=== PATIENT | male | born 1970 | race African-American/Black ===

== ENCOUNTER 2018-06-24 07:56 | Inpatient (IN) | payer SELFPAY ==
[2018-06-24] VITALS (16 sets, daily range): BP systolic 124–181; BP diastolic 73–102
[~2018-06-24] VITALS: Ht 170.2 cm; Wt 97.2 kg
[~2018-06-24 07:56] MED LIST: (None)3.5 GM OP; CIPROFLOXACN500 MG PO; GENTAMICIN SULF5 ML OP; METRONIDAZOL500 MG PO; NO MEDS; ULTRAM50 M1 PO
[2018-06-24] MEDS ORDERED: EXFORGE1 TA1 PO (08:14)
[2018-06-24] MEDS ORDERED: ASPIRIN81 MG PO (08:14)
[2018-06-24 08:33] LABS: HEMATOCRIT 45.1 % (39.0-50.0); HEMOGLOBIN 15.4 g/dl (14.0-18.0); IMMATURE GRANULOCYTES 0.2 % (0.0-5.0); MEAN CELL VOLUME 95.3 fL CALC (80.0-100.0); MEAN CORPUSCULAR HGB 32.6 pG CALC (26.0-32.0); MEAN CORPUSCULAR HGB CONC 34.1 g/L CALC (32.0-36.0); NEUT# 4.66 thou/uL (1.82-7.42); RED BLOOD COUNT 4.73 mill/uL (4.70-6.10); RED CELL DISTRI WIDTH 13.3 % (11.5-15.5)
[2018-06-24 08:48] LABS: ALBUMIN 4.6 g/dL (3.2-5.0); ALKALINE PHOSPHATASE 95 u/l (38-126); ANION GAP 15 (6-22 (CALC)); BILIRUBIN, TOTAL 0.5 mg/dL (0.0-1.4); BUN 12 mg/dL (9-20); BUN/CREATININE RATIO 10 (12-20 (CALC)); CARBON DIOXIDE 27 mmol/l (22-30); CHLORIDE 105 mmol/l (95-108); CREATININE 1.2 mg/dL (0.7-1.3); GFR > 60 ML/MIN (>=60 (CALC)); GFR FOR AFR.AMER. > 60 ML/MIN (>=60 (CALC)); POTASSIUM 4.1 mmol/l (3.5-5.1); SGOT/AST 45 u/l (17-59); SGPT/ALT 44 u/l (21-72); SODIUM 143 mmol/l (137-146); TOTAL PROTEIN 8.3 g/dL (6.3-8.2)
[2018-06-24 09:00] LABS: MYOGLOBIN 41 ng/mL (0 - 121)
[2018-06-24 10:44] LABS: URINE BILIRUBIN - DIPSTICK NEGATIVE (NEGATIVE); URINE BLOOD DIPSTICK TRACE-LYSED (NEGATIVE); URINE COLOR YELLOW; URINE GLUCOSE - DIPSTICK NEGATIVE (NEGATIVE); URINE KETONE NEGATIVE (NEGATIVE); URINE LEUK ESTERASE NEGATIVE (NEGATIVE); URINE NITRITE - DIPSTICK NEGATIVE (Negative); URINE PH 6.5 (4.5-8.0); URINE PROTEIN - DIPSTICK NEGATIVE (NEG-TRACE); URINE UROBILINOGEN - DIPSTICK 0.2 E.U./dL (0.2)
[2018-06-24 10:46] LABS: URINE CLARITY CLEAR
[2018-06-24 10:52] LABS: BARBITURATES NEGATIVE (NEGATIVE); COCAINE NEGATIVE (NEGATIVE); METHADONE NEGATIVE (NEGATIVE); OXCYCODONE NEGATIVE (NEGATIVE); TETRAHYDROCANNABIONOL NEGATIVE (NEGATIVE); TRICYLIC ANTIDEPRESSANTS NEGATIVE (NEGATIVE)
[2018-06-25] VITALS (9 sets, daily range): BP systolic 119–155; BP diastolic 67–98
[2018-06-25 06:07] LABS: HEMATOCRIT 42.6 % (39.0-50.0); HEMOGLOBIN 14.6 g/dl (14.0-18.0); MEAN CELL VOLUME 95.3 fL CALC (80.0-100.0); MEAN CORPUSCULAR HGB 32.7 pG CALC (26.0-32.0); MEAN CORPUSCULAR HGB CONC 34.3 g/L CALC (32.0-36.0); RED BLOOD COUNT 4.47 mill/uL (4.70-6.10); RED CELL DISTRI WIDTH 13.4 % (11.5-15.5)
[2018-06-25 06:21] LABS: ANION GAP 13 (6-22 (CALC)); BUN 12 mg/dL (9-20); BUN/CREATININE RATIO 11 (12-20 (CALC)); CALCULATED LDLCHOLESTEROL 134 mg/dL (62-129 (CALC)); CARBON DIOXIDE 25 mmol/l (22-30); CHLORIDE 106 mmol/l (95-108); CHOLESTEROL HDL RATIO 3.6 (<4.4 (CALC)); CREATININE 1.1 mg/dL (0.7-1.3); GFR > 60 ML/MIN (>=60 (CALC)); GFR FOR AFR.AMER. > 60 ML/MIN (>=60 (CALC)); HDL CHOLESTEROL 59 mg/dL (>=40); POTASSIUM 4.2 mmol/l (3.5-5.1); SODIUM 140 mmol/l (137-146); TOTAL CHOLESTEROL 213 mg/dl (0-199); TOTAL TRIGLYCERIDES 100 mg/dl (30-149); VLDL CHOLESTROL 20 mg/dl (5-56 (CALC))
[2018-06-25] MEDS ORDERED: HYDROCHLOROT25 MG PO (11:44)
[2018-06-25] MEDS ORDERED: AMLODIPINE BESYL5 MG PO (11:45)
[2018-06-25] MEDS ORDERED: LOSARTAN POT50 MG PO (11:45)
== END 2018-06-25 12:10 | disposition home or self-care (01) | DRG 305 ==
LOC: ED 07:56 → ED-I 10:00 → ED 10:29 → ICU 10:30
PROVIDERS: Emergency Medicine; ADMIT Internal Medicine; ATTEND Internal Medicine
DX: I16.0 Hypertensive urgency (principal); I10 Essential (primary) hypertension; E11.9 Type 2 diabetes mellitus without complications; F17.210 Nicotine dependence, cigarettes, uncomplicated; F10.10 Alcohol abuse, uncomplicated; Z91.14 Patient's other noncompliance with medication regimen
CPT/HCPCS: J1650

== ENCOUNTER 2018-08-07 01:53 | Inpatient (IN) | payer OTHER ==
[2018-08-07] VITALS (32 sets, daily range): BP systolic 100–180; BP diastolic 50–103
[~2018-08-07] VITALS: Ht 170.2 cm; Wt 97.4 kg
[~2018-08-07 01:53] MED LIST changes: +AMLODIPINE BESYL5 MG PO; +ASPIRIN81 MG PO; +EXFORGE1 TA1 PO; +HYDROCHLOROT25 MG PO; +LIPITOR10 M1 PO; +LOPRESSOR25 MG PO; +LOSARTAN POT50 MG PO; +METFORMIN500 M1 PO; +NITROSTAT0.3 MG SL; +PRILOSEC20 MG/CAP PO
--- NOTE | 2018-08-07 01:56 | NUR ---
PT STRAIGHT BACK TO ROOM 12 AND EKG OBTAINED. P
--- NOTE | 2018-08-07 02:00 | NUR ---
PT HAD EKG CHANGES RIGHT SIDE EKG DONE. DR JAY REVIEWING. PULLED PREVIOUS- FROM 08/03- CHANGES NOTED.
[2018-08-07 02:36] LABS: HEMATOCRIT 40.8 % (39.0-50.0); HEMOGLOBIN 13.9 g/dl (14.0-18.0); IMMATURE GRANULOCYTES 0.1 % (0.0-5.0); MEAN CELL VOLUME 94.2 fL CALC (80.0-100.0); MEAN CORPUSCULAR HGB 32.1 pG CALC (26.0-32.0); MEAN CORPUSCULAR HGB CONC 34.1 g/L CALC (32.0-36.0); NEUT# 5.06 thou/uL (1.82-7.42); RED BLOOD COUNT 4.33 mill/uL (4.70-6.10); RED CELL DISTRI WIDTH 12.8 % (11.5-15.5)
[2018-08-07 02:49] LABS: URINE BILIRUBIN - DIPSTICK NEGATIVE (NEGATIVE); URINE BLOOD DIPSTICK TRACE-INTACT (NEGATIVE); URINE COLOR YELLOW; URINE GLUCOSE - DIPSTICK NEGATIVE (NEGATIVE); URINE KETONE NEGATIVE (NEGATIVE); URINE LEUK ESTERASE NEGATIVE (NEGATIVE); URINE NITRITE - DIPSTICK NEGATIVE (Negative); URINE PROTEIN - DIPSTICK NEGATIVE (NEG-TRACE); URINE UROBILINOGEN - DIPSTICK 0.2 E.U./dL (0.2)
--- NOTE | 2018-08-07 02:51 | NUR ---
PAIN DOWN TO 3/10- EX AT BEDSIDE. MEDICATIONS GIVEN. WAITING ON RESULTS.
[2018-08-07 02:52] LABS: URINE CLARITY CLEAR
[2018-08-07 02:53] LABS: ALBUMIN 4.4 g/dL (3.2-5.0); ALKALINE PHOSPHATASE 94 u/l (38-126); ANION GAP 15 (6-22 (CALC)); BILIRUBIN, TOTAL 0.3 mg/dL (0.0-1.4); BUN 20 mg/dL (9-20); BUN/CREATININE RATIO 17 (12-20 (CALC)); CARBON DIOXIDE 31 mmol/l (22-30); CHLORIDE 102 mmol/l (95-108); CREATININE 1.2 mg/dL (0.7-1.3); GFR > 60 ML/MIN (>=60 (CALC)); GFR FOR AFR.AMER. > 60 ML/MIN (>=60 (CALC)); SGOT/AST 26 u/l (17-59); SGPT/ALT 40 u/l (21-72); SODIUM 144 mmol/l (137-146); TOTAL PROTEIN 7.5 g/dL (6.3-8.2)
[2018-08-07 02:54] LABS: ACT PARTIAL THROMBO TIME 23.3 SECONDS (20.0-32.5); INTERNATIONAL NORMALIZED RATIO 0.9 RATIO (0.7-1.3)
[2018-08-07 03:05] LABS: MYOGLOBIN 30 ng/mL (0 - 121)
--- NOTE | 2018-08-07 03:56 | NUR ---
REPORT GIVEN TO MADAY STEPHEN
--- NOTE | 2018-08-07 04:05 | NUR ---
Admission Note Report Given to: MADAY STEPHEN Transported by: X Wheelchair Stretcher Transported with: X Nurse Transporter X Patent IV O2 X Employment Programs Analyst
--- NOTE | 2018-08-07 04:10 | NUR ---
REPORT GIVEN BY DAVION NASSAR. PATIENT TRANSFERED TO UNIT VIA WHEELCHAIR WITH FAMILY PRESENT. RESP EVEN AND UNLABORED. NO S/S OF DISTRESS NOTED. PATIENT ORIENTED TO ROOM, BED, AND CALL LIGHT. FALL PRECAUTIONS IN PLACE, PLAN OF CARE DISCUSSED, AND PATIENT INFORMED TO CALL WITH ANY QUESTIONS OR CONCERNS. IV SITE APPEARS TO BE HEALTHY, NO REDNESS OR SWELLING. TELE MONTIOR IN PLACE.
--- NOTE | 2018-08-07 06:55 | NUR ---
RECEIVED REPORT FROM ZAFAR NASSAR. HEAD SETTER MURPHY NASSAR ON FLOOR. STAT EKG OBTAINED SHOWING SIGNIFICANT CHANGES. LAB CALLED TO OBTAINED 2ND TROPONIN NOW. PT STILL C/O CP AT REST 11/18. CALLED BY HEAD SETTER AND ORDERS OBTAINED TO TRANSFER TO ICU BED 4 AND TO START A NITRO GTT. PT NOTIFIED, BELCHINAS PACKED UP AND PT SENT IN BED. TRANSFERRED PT TO ICU WITH ROSARIO NASSAR.
--- NOTE | 2018-08-07 07:15 | NUR ---
male pt received from Med Surg via bed accompanied by A Escobar MALAGON, Shaekel Roberts RN and Kristy Kline, Sup; bedside report received; assessment completed at this time; pt alert and oriented; confused to month but able to state year; admits to midsternal chest pressure rating 4/10; denies pain radiating; admits to nausea; no vomiting noted at present; pt admits to diaphoresis during the night; no diaphoresis noted at present; resp even and unlabored; lungs clear bilat; o2 per nc applied; skin color wnl; hr reg; strong pulses; no edema noted; sr on monitor; abd soft with bs present; no bm noted per publications writer; pt admits to voiding without pain or burning; no urine to inspect at thist time; #20 flushed and patent to lac; no redness or edema noted at site; significant left sided weakness noted; pt admits to weakness since 06/2018; pt states primary MD (Dr Ahn) wants to get heart straight before worrying about the weakness and eyes; plan of care explained; staff remains at bedside; call light within reach; will continue to monitor
--- NOTE | 2018-08-07 07:15 | NUR ---
PT TAKEN TO ICU BED 4, PLACED ON MONITOR AND REPORT GIVEN TO FILIBERTO NASSAR.
--- NOTE | 2018-08-07 07:25 | NUR ---
ntg gtt initiated at 10mcg/min; pt admits to midternal chest pressure rating 5/10; very anxious and restless; moaning as if in worse pain; staff remains at bedside; ntg gtt to be titrated; will continue to monitor
--- NOTE | 2018-08-07 08:02 | NUR ---
awake in bed; pain controlled; s/o at bedside; no distress noted; o2 per nc; iv patent; ntg gtt infusing at 40mcg/min; no redness or edema noted at site; sr on monitor with occasional pvc; call light within reach; will continue to monitor
--- NOTE | 2018-08-07 08:48 | NUR ---
Dr Gibbons and Enrique Ruelas HEBREW CANTOR present at bedside to assess pt and discuss plan of care
--- NOTE | 2018-08-07 08:54 | NUR ---
[facility] transfer center called; spoke with [facility]; information provided; facesheet to be fax; awaiting bed assignment; will continue to monitor
[2018-08-07 08:57] LABS: BARBITURATES NEGATIVE (NEGATIVE); COCAINE NEGATIVE (NEGATIVE); METHADONE NEGATIVE (NEGATIVE); OXCYCODONE NEGATIVE (NEGATIVE); TETRAHYDROCANNABIONOL NEGATIVE (NEGATIVE); TRICYLIC ANTIDEPRESSANTS NEGATIVE (NEGATIVE)
--- NOTE | 2018-08-07 10:10 | NUR ---
0955- pt transferred to CT Scan via wc with ntg gtt infusing as per protocol in stable condition; pt denies chest pain at current; medical writer remains with pt; 1010- returned to unit via wc in stable condition accompanied by this medical writer and student nurses x2; ntg gtt at 20 mcg/min; pt denies chest pain; spouse at bedside; monitoring attachments reapplied; po fluids provided as per request; sr on monitor; will continue to monitor
--- NOTE | 2018-08-07 11:20 | NUR ---
pt awake in bed; offers no complaints; denies chest pain; spouse present at bedside; iv patent; fluids/ntg gtt infusing at 20mcg/min; no redness or edema noted at site; sb on monitor; accucheck 116; call light within reach; will continue to monitor
--- NOTE | 2018-08-07 12:05 | NUR ---
awake; offers no complaints; no distress noted; denies pain; spouse present at bedside; sr on monitor; o2 per nc; ntg gtt at 20mcg/min; no redness or edema noted at site; call light within reach; will continue to monitor
--- NOTE | 2018-08-07 13:13 | NUR ---
call placed to [facility] transfer center [facility]; no beds available at this time; will continue to monitor
--- NOTE | 2018-08-07 14:03 | NUR ---
resting in bed with eyes closed; no distress noted; iv patent; ntgg gtt at 20mcg/min; no redness or edema noted at site; sb on monitor; o2 per nc; s/o at bedside; will continue to monitor
--- NOTE | 2018-08-07 16:06 | NUR ---
awake in bed; offers no complaints; denies pain; iv patent; ntg gtt infusing at 20mcg/min; s/o at bedside; sb on monitor; o2 per nc; deny needs; call light within reach; will continue to monitor
--- NOTE | 2018-08-07 16:16 | NUR ---
call received from [facility] transfer center [facility]; bed assignment received [id number]; report to be called to [phone]
--- NOTE | 2018-08-07 16:37 | NUR ---
[facility] transfer Jason called per this sign writer hand; information provided; ETA 20 min
--- NOTE | 2018-08-07 16:53 | NUR ---
report called to TICO Gates RN; direct number provided to this development writer for additional questions; will continue to monitor
--- NOTE | 2018-08-07 17:26 | NUR ---
[facility] transport on unit; report given; will continue to monitor
--- NOTE | 2018-08-07 17:31 | NUR ---
pt discharged with [facility] transport in stable condition; belongings sent with pt;
== END 2018-08-07 17:31 | disposition short-term general hospital (02) | DRG 281 ==
LOC: ED 01:53 → ED-I 03:00 → ED 03:44 → MS2 03:45 → ICU 07:00
PROVIDERS: Family Medicine; Nurse Practitioner Family; ADMIT Internal Medicine; ATTEND Internal Medicine
DX: I21.4 Non-ST elevation (NSTEMI) myocardial infarction (principal); G81.94 Hemiplegia, unspecified affecting left nondominant side; I10 Essential (primary) hypertension; E11.9 Type 2 diabetes mellitus without complications; E78.5 Hyperlipidemia, unspecified; F17.210 Nicotine dependence, cigarettes, uncomplicated; Z79.84 Long term (current) use of oral hypoglycemic drugs
CPT/HCPCS: J1650

== ENCOUNTER 2022-05-08 21:55 | Observation (INO) | payer OTHER ==
[2022-05-08] VITALS (9 sets, daily range): BP systolic 126–174; BP diastolic 80–117
[~2022-05-08] VITALS: Ht 170.2 cm; Wt 102.0 kg
--- NOTE | 2022-05-08 22:05 | NUR ---
PT IN ROOM WITH FAMILY AT BEDSIDE, PT AMBULATED FROM WAITING ROOM WITH A STEADY GATE.
[2022-05-08 22:28] LABS: HEMOGLOBIN 15.7 g/dl (14.0-18.0); IMMATURE GRANULOCYTES 0.1 % (0.0-5.0); MEAN CORPUSCULAR HGB 31.8 pG CALC (26.0-32.0); MEAN CORPUSCULAR HGB CONC 33.1 g/dL CAL (32.0-36.0); NEUT# 7.09 thou/uL (1.82-7.42); RED BLOOD COUNT 4.94 mill/uL (4.70-6.10); RED CELL DISTRI WIDTH 14.3 % (11.5-15.5)
[2022-05-08 22:35] LABS: HEMATOCRIT 47.4 % (39.0-50.0)
--- NOTE | 2022-05-08 22:40 | NUR ---
PT IN ROOM ON MONITOR, AWAITING TEST RESULTS, PT MEDICATED FOR PAIN, NO NEEDS AT THIS TIME, WILL CONT TO MONITOR.
[2022-05-08 22:42] LABS: ALBUMIN 4.4 g/dL (3.2-5.0); ALKALINE PHOSPHATASE 96 u/l (38-126); AMYLASE 115 u/l (30-110); BUN 12 mg/dL (9-20); BUN/CREATININE RATIO 12 (12-20 (CALC)); CARBON DIOXIDE 25 mmol/l (22-30); CHLORIDE 105 mmol/l (95-108); GFR FOR AFR.AMER. > 60 ML/MIN (>=60 (CALC)); GFR OTHER RACES > 60 ML/MIN (>=60 (CALC)); LIPASE 163 u/l (23-300); POTASSIUM 4.3 mmol/l (3.5-5.1); SGOT/AST 28 u/l (17-59); TOTAL PROTEIN 8.2 g/dL (6.3-8.2)
[2022-05-08 22:43] LABS: ANION GAP 9 (6-22 (CALC)); BILIRUBIN, TOTAL 0.6 mg/dL (0.0-1.4); SODIUM 135 mmol/l (137-146)
[2022-05-08 22:46] LABS: D-DIMER 0.23 mg/L (0.19-0.60)
[2022-05-08 22:51] LABS: ACT PARTIAL THROMBO TIME 25.6 SECONDS (20.0-32.5); INTERNATIONAL NORMALIZED RATIO 0.9 RATIO (0.7-1.3); PROTHROMBIN TIME 9.3 SECONDS (9.0-12.5)
[2022-05-08 22:53] LABS: MYOGLOBIN 38 ng/mL (0 - 121)
[2022-05-08 22:56] LABS: URINE BILIRUBIN - DIPSTICK NEGATIVE (NEGATIVE); URINE BLOOD DIPSTICK NEGATIVE (NEGATIVE); URINE COLOR YELLOW; URINE GLUCOSE - DIPSTICK NEGATIVE (NEGATIVE); URINE KETONE NEGATIVE (NEGATIVE); URINE LEUK ESTERASE NEGATIVE (NEGATIVE); URINE PROTEIN - DIPSTICK NEGATIVE (NEG-TRACE); URINE SPECIFIC GRAVITY 1.025
[2022-05-08 22:57] LABS: URINE NITRITE - DIPSTICK NEGATIVE (Negative)
--- NOTE | 2022-05-08 23:45 | NUR ---
PT TO BE ADMITTED. PT IN ROOM ON MONITOR WITH NO COMPLAINTS AT THIS TIME, PENDING ADMISSION, WILL CONT TO MONITOR.
[2022-05-09] VITALS (9 sets, daily range): BP systolic 120–165; BP diastolic 63–110
--- NOTE | 2022-05-09 00:09 | NUR ---
PT PENDING ADMISSION, PT IN ROOM ON MONITOR, AWAITING BED ASSIGNMENT, NO NEEDS AT THIS TIME, WILL CONT TO MONITOR.
[2022-05-09] MEDS ORDERED: HYDRALAZINE100 MG PO (00:14)
[2022-05-09] MEDS ORDERED: NITROGLYCERIN0.4 MG SL (00:16)
[2022-05-09] MEDS ORDERED: EZETIMIBE10 MG (00:17)
[2022-05-09] MEDS ORDERED: HYDROCHLOROT12.5 MG PO (00:18)
[2022-05-09] MEDS ORDERED: METOPROL TAR25 MG PO (00:19)
[2022-05-09] MEDS ORDERED: BRILINTA90 MG PO (00:19)
[2022-05-09] MEDS ORDERED: LOSARTAN POTAS100 MG PO (00:20)
[2022-05-09] MEDS ORDERED: AMLODIPINE BESY10 MG PO (00:21)
--- NOTE | 2022-05-09 01:54 | NUR ---
PT IN ROOM ON MONITOR RESTING QUIETLY, PT PENDING ADMISSION, LIGHTS DIMMED TO AID REST, WARM BLANKET APPLIED, CALL LIGHT WITHIN REACH, PT REPORTS NO NEEDS AT THIS TIME,
--- NOTE | 2022-05-09 02:35 | NUR ---
PT IN ROOM ON MONITOR PENDING ADMISSION, AWAITING BED ON FLOOR, PT SLEEPING QUIETLY, WILL CONT TO MONITOR.
--- NOTE | 2022-05-09 03:30 | NUR ---
PT IN ROOM ON MONITOR SLEEPING, VITAL SIGNS REMAIN STABLE, PT AWAITING BED ON FLOOR AND CONTINUES TO PEND ADMISSION IN ED, WILL CONT TO MONITOR.
[2022-05-09 04:13] LABS: CHOLESTEROL HDL RATIO 3.7 (<4.4 (CALC))
--- NOTE | 2022-05-09 04:32 | NUR ---
PT IN ROOM ON MONITOR ASLEEP, PT AWAITING BED ON FLOOR, WILL CONT TO MONITOR.
--- NOTE | 2022-05-09 05:44 | NUR ---
PER NURSING GRAPE CUTTER KIZZY NASSAR, PT TO BE TRANSPORTED TO FLOOR AT 0600 FOR ADMISSION.
--- NOTE | 2022-05-09 06:15 | NUR ---
PATIENT ARRIVED ON FLOOR VIA STRETCHER ACCOMPANIED BY Blanca DIETRICH RN, BEDSIDE REPORT RECEIVED AT THIS TIME.
--- NOTE | 2022-05-09 06:28 | NUR ---
PT ADMITTED TO [facility], PT TRANSPORTED TO FLOOR BY EMILY NASSAR, ON TELE, VIA STRETCHER. REPORT GIVEN AT BEDSIDE TO ERIC NASSAR.
--- NOTE | 2022-05-09 08:00 | NUR ---
SHIFT CHANGE REPORT, PT AWAKE ALERT AND ORIENTED RESTING IN BED, STATES HIS CHEST PAIN IS COMPLETELY RESOLVED AT THIS TIME, TELE MONITOR IN PLACE, CALL VINSON IN REACH AND BED LOCKED IN LOWEST POSITION.
--- NOTE | 2022-05-09 12:41 | NUR ---
MEDICAL TEAM ROUNDED AND DISCUSSED PLAN OF CARE. NURSE EDUCATED ON IMPORTANCE OF MANAGING BLOOD GLUCOSE LEVELS AND BLOOD PRESSURE, PT STATED UNDERSTANDING.
--- NOTE | 2022-05-09 14:45 | NUR ---
Patient is screened for physical medicine intervention and no needs are identified at this time
--- NOTE | 2022-05-09 16:11 | NUR ---
Discharge instructions given. Patient verbalizes understanding of same. Discharged in stable condition via Wheelchair to Home with family. All belongings sent with pt.
== END 2022-05-09 16:11 | disposition home or self-care (01) ==
LOC: ED 21:55 → ED-I 22:50 → ED 23:14 → ED-I 23:15 → MS2 05-09 06:00
PROVIDERS: Family Medicine; ADMIT Hospitalist; ATTEND Hospitalist
DX: R07.9 Chest pain, unspecified (principal); I25.10 Atherosclerotic heart disease of native coronary artery without angina pectoris; I10 Essential (primary) hypertension; E11.9 Type 2 diabetes mellitus without complications; E78.5 Hyperlipidemia, unspecified; F17.210 Nicotine dependence, cigarettes, uncomplicated; Z79.84 Long term (current) use of oral hypoglycemic drugs; Z95.5 Presence of coronary angioplasty implant and graft; Z20.822 Contact with and (suspected) exposure to COVID-19
CPT/HCPCS: G0378; J1650

== ENCOUNTER 2023-04-18 19:45 | Emergency (ER) | payer OTHER ==
[2023-04-18] VITALS (7 sets, daily range): BP systolic 143–192; BP diastolic 88–121
[~2023-04-18] VITALS: Ht 170.2 cm; Wt 95.0 kg
[~2023-04-18 19:45] MED LIST changes: +AMLODIPINE BESY10 MG PO; +BRILINTA90 MG PO; +EZETIMIBE10 MG; +HYDRALAZINE100 MG PO; +HYDROCHLOROT12.5 MG PO; +LOSARTAN POTAS100 MG PO; +METOPROL TAR25 MG PO; +NITROGLYCERIN0.4 MG SL
[2023-04-18 20:39] LABS: BASO% 0.5 % (0-3); EOS% 1.8 % (0-8); HEMATOCRIT 43.9 % (39.0-50.0); HEMOGLOBIN 14.3 g/dl (14.0-18.0); IMMATURE GRANULOCYTES 0.3 % (0.0-5.0); LYMPH% 35.6 % (15-41); MEAN CORPUSCULAR HGB CONC 32.6 g/dL CAL (32.0-36.0); MONO% 8.7 % (2-13); NEUT# 4.66 thou/uL (1.82-7.42); NEUT% 53.1 % (42-76); RED BLOOD COUNT 4.62 mill/uL (4.70-6.10); RED CELL DISTRI WIDTH 13.5 % (11.5-15.5)
[2023-04-18 21:01] LABS: ALBUMIN 4.4 g/dL (3.2-5.0); ALKALINE PHOSPHATASE 103 u/l (38-126); ANION GAP 13 (6-22 (CALC)); BILIRUBIN, TOTAL 0.3 mg/dL (0.2-1.3); BUN 10 mg/dL (9-20); BUN/CREATININE RATIO 9 (12-20 (CALC)); CARBON DIOXIDE 23 mmol/l (22-30); CHLORIDE 111 mmol/l (95-108); CREATININE 1.1 mg/dL (0.7-1.3); GFR FOR AFR.AMER. > 60 ML/MIN (>=60 (CALC)); GFR OTHER RACES > 60 ML/MIN (>=60 (CALC)); POTASSIUM 4.1 mmol/l (3.5-5.1); SGOT/AST 33 u/l (17-59); SODIUM 143 mmol/l (137-146); TOTAL PROTEIN 7.4 g/dL (6.3-8.2)
[2023-04-18] MEDS ORDERED: AMOXICILLIN500 MG PO (21:35)
== END 2023-04-18 21:58 | disposition home or self-care (01) ==
LOC: ED 19:45
PROVIDERS: Emergency Medicine
DX: S81.811A Laceration without foreign body, right lower leg, initial encounter (principal); I10 Essential (primary) hypertension; E11.9 Type 2 diabetes mellitus without complications; F17.200 Nicotine dependence, unspecified, uncomplicated; W29.8XXA Contact with other powered hand tools and household machinery, initial encounter; Y92.009 Unspecified place in unspecified non-institutional (private) residence as the place of occurrence of the external cause; T46.5X6A Underdosing of other antihypertensive drugs, initial encounter; Z91.128 Patient's intentional underdosing of medication regimen for other reason; Z79.84 Long term (current) use of oral hypoglycemic drugs; Z95.5 Presence of coronary angioplasty implant and graft; Z86.73 Personal history of transient ischemic attack (TIA), and cerebral infarction without residual deficits

== ENCOUNTER 2023-04-25 08:22 | Emergency (ER) | payer OTHER ==
[~2023-04-25] VITALS: Ht 170.2 cm; Wt 101.7 kg
[~2023-04-25 08:22] MED LIST changes: +AMOXICILLIN500 MG PO
[2023-04-25 08:40] VITALS: BP 186/119
[2023-04-25 08:46] VITALS: BP 210/121
[2023-04-25 08:54] VITALS: BP 178/99
[2023-04-25 09:02] VITALS: BP 207/104
[2023-04-25 09:18] VITALS: BP 182/105
[2023-04-25 09:24] VITALS: BP 182/105
== END 2023-04-25 09:25 | disposition home or self-care (01) ==
LOC: ED 08:22
DX: S81.811D Laceration without foreign body, right lower leg, subsequent encounter (principal); I10 Essential (primary) hypertension; E11.9 Type 2 diabetes mellitus without complications; F17.210 Nicotine dependence, cigarettes, uncomplicated; Z86.73 Personal history of transient ischemic attack (TIA), and cerebral infarction without residual deficits; Z95.5 Presence of coronary angioplasty implant and graft; Z79.84 Long term (current) use of oral hypoglycemic drugs; X58.XXXD Exposure to other specified factors, subsequent encounter

== ENCOUNTER 2023-05-01 14:57 | Emergency (ER) | payer OTHER ==
[~2023-05-01] VITALS: Ht 170.2 cm; Wt 100.0 kg
[2023-05-01] MEDS ORDERED: HYDROCHLOROT25 MG PO (15:39)
[2023-05-01 16:28] VITALS: BP 190/105
== END 2023-05-01 16:28 | disposition home or self-care (01) ==
LOC: ED 14:57
DX: S81.811D Laceration without foreign body, right lower leg, subsequent encounter (principal); X58.XXXD Exposure to other specified factors, subsequent encounter; I10 Essential (primary) hypertension; E11.9 Type 2 diabetes mellitus without complications; F17.290 Nicotine dependence, other tobacco product, uncomplicated; Z86.73 Personal history of transient ischemic attack (TIA), and cerebral infarction without residual deficits; Z79.84 Long term (current) use of oral hypoglycemic drugs